=== PATIENT | female | born 1990 | race Caucasian/White ===

== ENCOUNTER 2023-08-16 09:31 | Outpatient (CLI) | payer OTHER, SELFPAY | END 2023-08-16 09:32 | disposition home or self-care (01) | PROVIDERS: Visit Provider Obstetrics & Gynecology | DX: Z01.419 Encounter for gynecological examination (general) (routine) without abnormal findings (principal); R63.5 Abnormal weight gain; N81.89 Other female genital prolapse | CPT/HCPCS: 82947; 84443 ==

== ENCOUNTER 2023-12-17 19:34 | Outpatient (CLI) | payer OTHER, SELFPAY ==
--- NOTE | 2023-12-24 08:57 | W.PM.SLEEP ---
Sleep Study Details Details Interpreting Provider: Nelsy Date of Sleep Study: 12/17/23 Sleep Study Details: STUDY TYPE:? Home unattended ? BMI:? 28.2 ORDERING PROVIDER:? Nelsy INDICATION:? Concerns about sleep apnea ? SLEEP SUMMARY:? 333.3 minutes monitored RESPIRATORY SUMMARY:? AHI 1.3, rule 1A AHI 3.4. The AHI was 10.2 in the right lateral position but below 5 in all other positions Low oxygen 89 No snoring PERIODIC LIMB MOVEMENTS OF SLEEP:? Not recorded during home study CARDIAC:? Range 48-100, mean 58.4. IMPRESSION:? This study does not demonstrate clinically significant obstructive sleep apnea. If sleep disorder is strongly suspected recommend an in-lab study. RECOMMENDATION: See impression
== END 2023-12-17 19:35 | disposition home or self-care (01) ==
LOC: SLEEP 19:35
PROVIDERS: Visit Provider Otolaryngology
DX: G47.30 Sleep apnea, unspecified (principal); G47.10 Hypersomnia, unspecified; R06.83 Snoring
CPT/HCPCS: 95806

== ENCOUNTER 2024-04-06 09:00 | Outpatient (CLI) | payer OTHER, SELFPAY ==
--- OUTSIDE RECORDS SUMMARY | 2024-04-06 09:04 | XMS_ITS | Clinical Summary ---
Author Name Unknown Organization [employer] [facility] Address [place], [place] [address] Care Team Providers Care Maintenance Fitter Name Role Phone [facility] Primary Care Provider [phone] Allergies No known active allergies Medications Medication Sig Dispensed Refills Start Date End Date Status sertraline (ZOLOFT) 25 mg tabletIndications:Dep ression, recurrent (HC) Take 1 Tablet (25 mg) by mouth every morning. 30 Tablet 1 08/31/2022 Active Active Problems Problem Noted Date Diagnosed Date Posttraumatic stress disorder 07/22/2020 Social History Tobacco Use Types Packs/Day Years Used Date Smoking Tobacco: Never Smokeless Tobacco: Never Tobacco Cessation:Counseling Given: Yes Alcohol Use Standard Drinks/Week Comments Yes 0 (1 standard drink = 0.6 oz pur e alcohol) social Social Connections Answer Date Recorded Frequency of Communication with Friends and Fami ly Not on file 08/31/2022 Sex and Gender Information Value Date Recorded Sex Assigned at Not on file Gender Identity Not on file Sexual Orientation Not on file Obstetrics History Para Term AB IAB SAB Ectopic Multiple Livin g Live Births 3 3 3 3 3 Date Outcome GA Total Labor Labor/2nd/3rd Weight Sex Delivery Anes PTL Annetta A1 A5 Name Cl in 09/28 Term 41w 0d 3.6 kg (7 lb 15 oz) F Vag-Spont Epidu ral N Courtney ng KARLA Complications:None Delivery Location:[place] 01/29 Term 41w 2d 3h 58m 3h 30m/0h 19m/0h 09m 4.62 kg (10 lb 3 oz) F Local Courtney ng 8 9 Anette leyva MD Complications:None Delivery Location:[facility] 04/17 Term 39w 2d 4.67 kg (10 lb 4.7 oz) M CS-LTranv Spina l N Courtney ng 8 9 Peter Delivery Location:[facility] (RH ) Last Filed Vital Signs Vital Sign Reading Time Taken Comments Blood Pressure 123/75 08/31/2022 9:46 AM CDT Pulse 66 08/31/2022 9:46 AM CDT Temperature - - Respiratory Rate - - Oxygen Saturation 98% 08/31/2022 9:46 AM CDT Inhaled Oxygen Concentration - - Weight 84.4 kg (186 lb) 08/31/2022 9:46 AM CDT Height - - Body Mass Index - - Plan of Treatment Health Maintenance Due Date Last Done Comments Tdap 2002 Depression screening for age 12+ 2003 HIV for age 15-65 2006 BMI (ht and wt on same day) for age 18+ 2009 Hepatitis C screening for ag e 18-79 2009 Tetanus booster 2011 COVID-19 vaccine series (2022-24 season) 2023 10/03/2021, 03/09/2021 Influenza for age 9-49 07/19/2024 Pap test for age 21-65 08/16/2026 , 08/16/2023 Pneumococcal series for age 6-64 Aged Out No longer eligible b ased on patient's age to complete this topic Procedures Procedure Name Priority Date/Time Associated Diagnosis Comments HPV THIN PREP Routine 08/16/2023 12:00 PM CDT from Last 3 Months or Most Recently Relevant to Health Maintenance Results * HPV HIGH RISK (08/16/2023 12:00 PM CDT) TYPE 16 Negative Negative 08/22/2023 11:10 AM CDT [facility] TYPE 18 Negative Negative 08/22/2023 11:10 AM CDT [facility] OTHER HIGH RISK TYPES Negative Negative 08/22/2023 11:10 AM CDT [facility] Other (Cervical) 08/16/2023 12:00 PM CDT 08/20/2023 9:27 AM CDT Narrative [facility] - 08/22/2023 11:10 AM CDT HPV types 16, 18, 31, 33, 35, 39, 45, 51, 52, 56, 58, 59, 66 and 68 DNA were undetectable or below the pre-set threshold. Methodology: Donna Karlos 4800 HPV Test Chelsey Dyer MD [facility]BIOLOG[facility] [address] [place] [address], from Last 3 Months or Most Recently Relevant to Health Maintenance Care Teams Maintenance Fitter Relationship Specialty Start Date End Date [facility] [address] [place] [address] PCP - General 08/28/22
== END 2024-04-06 09:01 | disposition home or self-care (01) ==
PROVIDERS: Visit Provider Internal Medicine
DX: Z00.00 Encounter for general adult medical examination without abnormal findings (principal); R53.83 Other fatigue
CPT/HCPCS: 80053; 84443

== ENCOUNTER 2024-04-22 09:24 | Outpatient (CLI) | payer OTHER, SELFPAY ==
--- NOTE | 2024-04-22 09:15 | CRLHL7_ITS ---
For Patients: As a result of the Century Cures Act, medical imaging exams and procedure reports are released immediately into your electronic medical record. You may view this report before your referring provider. If you have questions, please contact your health care provider. CLINICAL HISTORY: Pelvic pain TECHNIQUE: 2D nguyen scale ultrasound. In addition color Doppler and spectral Doppler analysis was performed of the pelvis using a transabdominal and transvaginal approach. FINDINGS: On transvaginal imaging, the myometrium has a normal uniform echotexture. The uterus measures 9.3 x 5.8 x 5.9 cm. The endometrial lining appears normal and measures 11 mm in thickness. The right ovary measures 4.6 x 3.2 x 2.6 cm in size and the right ovary measures 3.4 x 2.0 x 2.4 cm. The ovaries demonstrate normal arterial and venous blood flow on color Doppler and spectral Doppler analysis. Moderate pelvic free fluid. Collapsing right ovarian cyst measures 2.7 x 2.3 x 2.1 cm. IMPRESSION: Collapsing right ovarian cyst measuring 2.7 cm with moderate pelvic free fluid. No torsion. No uterine fibroid. Dictated by Dean Kemp MD @ 04/23/2024 10:42:25 AM (Electronically Signed)
--- OUTSIDE RECORDS SUMMARY | 2024-04-22 09:26 | XMS_ITS | Clinical Summary ---
Author Organization [employer] [facility] Address [place], [place] [address] Care Team Providers Care Screen And Cyclone Repairer Name Role Phone [facility] Primary Care Provider [phone] Allergies No known active allergies Medications Medication [...] ral N Courtney ng KARLA Complications:None Delivery Location:[place] 01/29 Term 41w 2d 3h 58m 3h 30m/0h 19m/0h 09m 4.62 kg (10 lb 3 oz) F Local Courtney ng 8 9 Anette leyva MD Complications:None Delivery Location:[facility] 04/17 Term 39w 2d 4.67 kg (10 lb 4.7 oz) M CS-LTranv Spina l N Courtney ng 8 9 Peter Delivery Location:[facility] ([facility] ) Last Filed Vital Signs Vital [...] 2009 Tetanus booster 2011 COVID-19 vaccine series (2022- season) 2023 10/03/2021, 03/09/2021 Influenza for age [...] 16 Negative Negative 08/22/2023 11:10 AM CDT [facility] [employer] [facility] TYPE 18 Negative Negative 08/22/2023 11:10 AM CDT [facility] OTHER HIGH RISK TYPES Negative Negative 08/22/2023 11:10 AM CDT [facility] Other (Cervical) 08/16/2023 12:00 PM CDT 08/20/2023 9:27 AM CDT Narrative [facility] - 08/22/2023 11:10 AM CDT HPV types 16, 18, 31, 33, 35, 39, 45, 51, 52, 56, 58, 59, 66 and 68 DNA were undetectable or below the pre-set threshold. Methodology: Donna Karlos 4800 HPV Test Chelsey Dyer MD MICROBIOLOGY [facility] [address] [place] [address], from Last 3 Months or Most Recently Relevant to Health Maintenance Care Teams Screen And Cyclone Repairer Relationship Specialty Start Date End Date [facility] [address] [place] [address] PCP - General 08/28/22
== END 2024-04-22 09:25 | disposition home or self-care (01) ==
LOC: US 09:24
PROVIDERS: PCP Internal Medicine; Visit Provider Internal Medicine
DX: R10.2 Pelvic and perineal pain (principal); N83.201 Unspecified ovarian cyst, right side; R53.83 Other fatigue
CPT/HCPCS: 76830; 76856; 93976

== ENCOUNTER 2024-05-04 12:02 | Outpatient (CLI) | payer OTHER, SELFPAY ==
--- OUTSIDE RECORDS SUMMARY | 2024-05-04 12:09 | XMS_ITS | Clinical Summary ---
Author Organization [employer] [facility] Address [place], [place] [address] Care Team Providers Care Crop Grain Or Livestock Farmer Name Role Phone [facility] Primary Care Provider [phone] Allergies No known active allergies Medications Medication [...] Outcome GA Total Labor Labor/2nd/3rd Weight Sex Type Anes PTL Annetta A1 A5 Name Clin 2013 Term 41w 0d 3.6 kg (7 lb 15 oz) F Vag-S pont Epidur al N Livin g KARLA Complications:None Delivery Location:[place] 2016 Term 41w 2d 3h 58m 3h 30m/0h 19m/0h 09m 4.62 kg (10 lb 3 oz) F Local Livin g 8 9 Julisa Mita leyva MD Complications:None Delivery Location:[facility] 2018 Term 39w 2d 4.67 kg (10 lb 4.7 oz) M CS-LT ranv Spinal N Annettain g 8 9 Peter Delivery Location:[facility] ([facility] ) Last Filed Vital Signs Vital [...] 16 Negative Negative 08/22/2023 11:10 AM CDT [facility] [employer] [facility] TYPE 18 Negative Negative 08/22/2023 11:10 AM CDT [facility] OTHER HIGH RISK TYPES Negative Negative 08/22/2023 11:10 AM CDT [facility] Other (Cervical) 08/16/2023 12:00 PM CDT 08/20/2023 9:27 AM CDT Narrative [facility] - 08/22/2023 11:10 AM CDT HPV types 16, 18, 31, 33, 35, 39, 45, 51, 52, 56, 58, 59, 66 and 68 DNA were undetectable or below the pre-set threshold. Methodology: Donna Karlos 4800 HPV Test Chelsey Dyer MD MICROBIOLOGY [facility] [address] [place] [address], from Last 3 Months or Most Recently Relevant to Health Maintenance Care Teams Crop Grain Or Livestock Farmer Relationship Specialty Start Date End Date [facility] [address] [place] [address] PCP - General 08/28/22
== END 2024-05-04 12:03 | disposition home or self-care (01) ==
PROVIDERS: PCP Internal Medicine; Visit Provider Obstetrics & Gynecology
DX: E28.2 Polycystic ovarian syndrome (principal); R53.83 Other fatigue; N92.0 Excessive and frequent menstruation with regular cycle
CPT/HCPCS: 82947; 83001; 83002; 83498; 84270; 84402; 84403; 84443